=== PATIENT | male | born 1995 | race Caucasian/White ===

== ENCOUNTER 2025-01-26 10:08 | Emergency (ER) | payer SELFPAY ==
[2025-01-26] MEDS ORDERED: Dexamethasone 4 MG TAB ONE (11:21)
== END 2025-01-26 11:32 | disposition home or self-care (01) ==
LOC: CSHERS 10:08
DX: J02.9 Acute pharyngitis, unspecified (principal); B97.89 Other viral agents as the cause of diseases classified elsewhere; J01.90 Acute sinusitis, unspecified; F17.290 Nicotine dependence, other tobacco product, uncomplicated
CPT/HCPCS: 87081; 87428; 87430; 99283; J8540